=== PATIENT | female | born 1990 ===

== ENCOUNTER 2024-08-02 11:10 | Outpatient (AMB) | payer OTHER, SELFPAY ==
--- NOTE | 2024-08-02 11:21 | MHC.OFFVIS ---
Vital Signs 08/02/24 11:29 Height 5 ft 5 in Weight 98 lb BMI 16.3 BP 111/73 Blood Pressure Location Rt brachial Position Sitting Pulse 72 Intake Visit Reasons: Painful left breast mass,swelling, 12-3 o'clock Intake Note: This patient presents for painful left breast mass, swelling, 12-3 o'clock. Pt c/o; started on oral antibiotics 08/01/2024, reports no redness or hot to the touch sensation, reports pain/swelling, no nipple discharge, reports pressure sensation. 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 She states that she has had this problem for about 4 days. He went to an urgent care center yesterday and was referred to me She denies any obvious palpable mass but feels that her left breast is ?swollen?. She had a similar problem about a year ago and went to [facility]. She says that she was supposed to see an OBGYN at that time for further workup but she says she did not do it She has had no primary care physician either She denies any nipple discharge. She denies any redness of the skin of the breast. [facility] Medical History (Updated 08/02/24 @ 11:50 by Andrew Nguyen MD) Mastodynia of left breast Surgical History No pertinent past surgical history Family History Father No problems noted. Mother No problems noted. Son In good health Sister In good health Review of Systems Const Denies chills and Denies fever(s) Card Denies chest pain, Denies dyspnea and Denies dyspnea on exertion Resp Denies cough, Denies dyspnea and Denies dyspnea on exertion GI Denies hematochezia and Denies change in bowel habits Denies hematuria Musc Denies back pain and Denies limited range of motion Neuro Denies focal weakness and Denies convulsions Psych Denies depression and Denies mood swings Physical Exam Vital Signs: Last Vital Signs Pulse 72 08/02/24 11:29 BP 111/73 08/02/24 11:29 BMI result Body Mass Index 16.3 Const Other: Appears cachectic General: comfortable and no acute distress Orientation/consciousness: patient oriented x3 Neck Neck: Yes no lymphadenopathy Chest Other: Left breast with diffuse tenderness, no obvious mass although exam is difficult at this time, no axillary lymphadenopathy Resp Auscultation: clear to auscultation bilaterally Cardio Rhythm: regular rhythm GI Palpation (GI): Soft to palpation, nontender and no guarding Neuro General: patient oriented x3 Assessment & Plan Assessment & Plan (1) Mastodynia of left breast: Code(s): N64.4 - Mastodynia Category: Medical Plan: She has mastodynia of the left breast. I do not feel any obvious mass. I am going to order for an ultrasound. I told her that NSAIDs including ibuprofen can help with her symptoms at this time. I explained to her that often times, these episodes may last for weeks . I assured her that there is no evidence of any infection. She has no redness of the skin nipple discharge. I also advised her to avoid caffeine products for now I will see her in the office after her ultrasound. Her mother was with her during the visit. I told the mother about my concerns with regards to her cachexia. The mother says that was worried about this as well and they will try to arrange for a primary care visit. Coding Level of Care Code New Pt Level 3 (14405) Diagnoses Mastodynia of left breast N64.4
[2024-08-02 11:29] VITALS: BP 111/73; PULSE 72; BMI 16.3
--- OUTSIDE RECORDS SUMMARY | 2024-08-02 11:55 | XMS_ITS | Data Portability ---
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 Plan of Treatment Reminders Order Date Submit Date Provider Last Modified By Organization Details Last Modified Time Details Appointments None recorded. Lab rapid flu (A+B) 2021 [email or web address] 1 _[facility], [address] [place] [address], [phone], 13:56:55 rapid SARS CoV 2 Ag, QL IA, respiratory specimen 2021 [email or web address] 1 _[facility], [address] [place] [address], [phone], 13:56:55 Referral None recorded. Procedures None recorded. Surgeries None recorded. Imaging None recorded. Medication Orders fluticasone propionate 50 mcg/actuati on nasal spray,suspe nsion 2021 [id number], [address] [place], [address], 13:56:57 ondansetron 4 mg disintegrat ing tablet 2021 [id number], [address] [place], [address], 13:56:57 Patient TargetsNo targets recorded. Patient Instructions Encounter Date Encounter Id Patient Instructions Last Modified By Organization Details Last Modified Time 06/04/2022 [id number] influenza (flu): care instructions [email or web address] Not available 06/04/2022 13:56:55 advised pt to repeat rapid covid test in 48 hours [email or web address] Not available 06/04/2022 13:58:48 Reason for Referral None Reported. Results Created Date Observation Date Name Description Value Unit Range Abnormal Flag Note LastModifiedBy Organization Detail LastModifiedTime 06/04/20 22 06/04/2022 rapid SARS CoV 2 Ag, QL IA, respi rator y speci men Unknown Analyte Normal =Negat emma Not Available [address] [place] [address], [phone], 06/04/2022 13:00:41 06/04/20 22 06/04/2022 rapid SARS CoV 2 Ag, QL IA, respi rator y speci men Unknown Analyte negati ve Not Available [address] [place] [address], [phone], 06/04/2022 13:00:41 06/04/20 22 06/04/2022 rapid flu (A+B) Unknown Analyte Normal = Negati ve Not Available [address] [place] [address], [phone], 06/04/2022 13:00:36 06/04/20 22 06/04/2022 rapid flu (A+B) Unknown Analyte negati ve Not Available [address] [place] [address], [phone], 06/04/2022 13:00:36 06/04/20 22 06/04/2022 rapid flu (A+B) Unknown Analyte Normal = Negati ve Not Available [address] [place] [address], [phone], 06/04/2022 13:00:36 06/04/20 22 06/04/2022 rapid flu (A+B) Unknown Analyte negati ve Not Available [address] [place] [address], [place], [phone], 06/04/2022 13:00:36 Result Notes None recorded. Problems No Known Problems Medical Equipment None Reported. Allergies No known drug allergies Medications Name Sig Start Date Stop Date Status Note LastModified by Organization Details LastModified Time ondansetron 4 mg disintegrati ng tablet Place 1 tablet every 6-8 hours by translingua l route as needed. 2021 active Not Available Not Available Not Avai lable fluticasone propionate 50 mcg/actuatio n nasal spray,suspen yadira [place] 1 spray twice a day by intranasal route as directed. 2021 active Not Available Not Available Not Avai lable Vitals Date Recorded Body height Body mass index (BMI) Body weight Oxygen saturation Oxygen saturation in Arterial blood by Pulse oximetry Heart rate Respiratory rate Body temperature Systolic blood pressure Diastolic blood pressure Provider Name and Address Organization Details Last Updated DateTime 2 165.1 cm 17 kg/m2 69591.4 2 g 100 % 100 % 103 /min 18 /min 98.3 [degF] 96 mm[Hg] 64 mm[Hg] Sonia Gant PA - [facility] 13:12:51 Social History Question Answer Notes LastModified by Organizat ion Details LastModified Time Tobacco Smoking Status Never Smoker Sonia lopez PA - [facility] 06/04/2022 13:00:27 What Is Your Level Of Alcohol Consumption? None Information not available 06/04/2022 Have You Had Direct Contact, Or Contact During Intimacy, With Monkeypox Rash, Scabs, Or Body Fluids From A Person With Monkeypox? No Information not available 06/04/2022 Do You Use Any Illicit Or Recreational Drugs? No Information not available 06/04/2022 Have You Recently Traveled Abroad? No Information not available 06/04/2022 Do You Or Have You Ever Used Any Other Forms Of Tobacco Or Nicotine? No Information not available 06/04/2022 Sex: Unknown Functional Status None recorded. Mental Status None recorded. Family History Relationship Description Onset Age of this Age Resolved Age Notes LastModified by Organization Details LastModified Time Father No current problems or disability Not available 06/04 13:00:18 Mother No current problems or disability Not available 06/04 13:00:18 Medical History No medical history recorded. Gynecological HistoryNo gynecological history recorded. Obstetrics History GPAL:G 0 P 0 0 0 0 Past Encounters Encounter ID Performer Location Encounter Start Date Encounter Closed Date Diagnosis/Indication Diagnosis SNOMED-CT Code Diagnosis ICD10 Code Diagnosis Note [id number] [address] [place] [address] 01/27/2021 08:43:33 01/27/2021 11:24:39 [id number] [address] [facility] [address] [place] [address] 07/17/2019 11:50:48 07/17/2019 16:23:33 [id number] [address] [address] 06/02/2019 12:30:49 06/02/2019 13:06:07 [id number] [address] [address] [place] [address] 02/07/2018 17:11:51 02/07/2018 17:32:36 [id number] [address] [address] 06/03/2021 16:51:42 06/03/2021 19:05:28 [id number] [facility] [address] [place] [address] 07/02/2019 18:23:54 07/02/2019 18:47:13 [id number] GAEL GARG MD [address] [address] 06/04/2022 11:11:57 06/04/2022 14:01:39 Fever 354496398 R50.9 Influenza [id number] J11.1 Drink plenty of fluids Try small amounts of clear liquids frequently . Water, pradeep peace,clear chicken broth, or sport drinks. If vomiting occurs, wait 30-60 minutes before trying clear liquids again. Once you are able to tolerate clear liquids without vomiting for at least 6-12 hours without vomiting, you may begin to eat small amounts of food, starting with a BRAT diet. The BRAT diet consists of foods such as bananas, rice, applesauce , toast, crackers, and other foods rich in carbohydra [place] and low on fats and spices, which tend to irritate the stomach. If the BRAT diet is tolerated for 12-24 hours, you can slowly add other foods to your diet. If vomiting occurs, you should go back to clear liquids only and work your way back to a normal diet as outlined above. If you are unable to tolerate clear liquids for4 consecutiv e hours, you should seek treatment immediatel y or go to the Emergency Department . If your symptoms are getting worse, or if you develop new symptoms that concern you, you should call 911 or go to the Emergency Department . If your symptoms worsen or persist you should be re-evaluat ed. [facility] or see your primary care physician if your symptoms fail to improve in 3-5 days. You should follow up sooner if your symptoms worsen significan tly or if you develop new symptoms that concern you. Health Concerns Section Related Observation LastModified by Organization Detai ls LastModified Time None Recorded Concern Status LastModified by Organization Details LastModified Time None Recorded Advance Directives Directive None Recorded Payers Encounter Date Sequence Insurance Name Policy Number Policy Bazan Covered Member ID Bazan Member ID Guarantor Name 07/02/2019 1 [facility] [id number] Lexi Elizabeth [id number] Lexi Elizabeth 07/02/2019 2 [place] [facility] Lexi Elizabeth [id number] Lexi Elizabeth 07/17/2019 1 [facility] [id number] Lexi Elizabeth [id number] Lexi Elizabeth 07/17/2019 2 [place] [facility] Lexi Elizabeth [id number] Lexi Elizabeth 01/27/2021 1 [facility] [id number] Leix Elizabeth [id number] Lexi Elizabeth 01/27/2021 2 [place] [facility] Lexi Elizabeth [id number] Lexi Elizabeth 06/03/2021 1 [facility] [id number] Lexi Elizabeth [id number] Lexi Elizabeth 06/03/2021 2 [place] [facility] Lexi Elizabeth [id number] Lexi Elizabeth 06/04/2022 1 [facility] (MEDICAID HMO) Lexi Elizabeth [id number] Lexi Elizabeth Notes Date Note Type Note Provider Name and Address Organization Details Recorded Time 06/04/2022 text/html FeverReported bypatient.source of patient informationpatient Severity:101 degrees F Duration:constant Context:Possible Exposure to Covid-19; 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 Also with N/V - vomiting has subsided but still nauseated. Able to paulino water. GAEL GARG MD [address] [facility] [place], [address], [place] - [facility] 06/04/2022 13:58:52 OBGyn Episode No OBEpisode recorded.
--- OUTSIDE RECORDS SUMMARY | 2024-08-02 11:55 | XMS_ITS | Encounter Summary ---
Author Organization [facility] Address [address] [place] [address] Phone Care Team Providers Care Crystal Evaluator Name Role Phone Unavailable Primary Care Provider Unavailabl e Encounter Details Date Type Department Care Team (Late st Contact Info) Description 01/28/2017 Conversion Encounter [facility] - [address] [address] Social History Tobacco Use Types Packs/Day Years Used Date Smoking Tobacco: Never Assessed Comments Unknown Sex and Gender Information Value Date Recorded Sex Assigned at Not on file Legal Sex Female 4:44 PM EDT Gender Identity Not on file Sexual Orientation Not on file documented as of this encounter Plan of Treatment Not on file documented as of this encounter Visit Diagnoses Not on filedocumented in this encounter
--- OUTSIDE RECORDS SUMMARY | 2024-08-02 11:55 | XMS_ITS | Clinical Summary ---
Author Organization [facility] Address [address] [place] [address] Phone Care Team Providers Care Spikemaking Supervisor Name Role Phone Unavailable Primary Care Provider Unavailabl e Immunizations Immunization Administration Dates Next Due DTP 10/20/1994, 1,05/10/1990,03/08,01/03/1990 HPV, Quadrivalent 01/02/2008,09/13/2007 Hep B, ped/adol 11/06/2003,07/06/2003,07/05/2002 Hib (PRP-T) 02/09/1991,11/11/1990,05/10/1990 MMR 10/20/1994,02/09/1991 Meningococcal Conj (Menactra) MCV4P 09/13/2007 OPV 10/20/1994, 1,03/08/1990,01/03 Td (adult) (MBL), 2 Lf tetan us toxoid, PF, adsorbed 07/05/2002 Tdap 07/12/2007 Varicella 09/13/2007,08/08/2003 Family History Relation Name Status Comments Father Alive Father: Alive a nd well Mother Alive Mother: Alive a nd well Other No family histo ry of Sudden /CA under age 55, No family history of Obesity, No family history of Deafness, No family history of Elevated cholesterol, No family history of Seizure disorder, No family history of Autism, No family history of Diabetes mellitus, Family history of Asthma, No family history of ADD/ADHD, No family history of Developmental dislocation of hip, No family history of Migraines, No family history of Strabismus/amblyopia Sister Alive Sister: Asthma Social History Tobacco Use Types Packs/Day Years Used Date Smoking Tobacco: Never Assessed Comments Unknown Sex and Gender Information Value Date Recorded Sex Assigned at Not on file Legal Sex Female 4:44 PM EDT Gender Identity Not on file Sexual Orientation Not on file Plan of Treatment Health Maintenance Due Date Last Done Comments HPV Vaccines (3 - 3-dose series) 03/26/2008 01/02/2008, 09/13/2007 DTaP,Tdap,and Td Vaccines (7 - Td or Tdap) 07/12/2017 07/12/2007, 07/05/2002, 10/20/1994, Additional history exists Influenza Vaccines (#1) 2024 COVID-19 Vaccine ( season) 2024 HIB Vaccines Completed 02/09/1991, 10/14, 05/10/1990 IPV Vaccines Completed 10/20/1994, 08/1990, 03/08/1990, Additional history exists MMR Vaccines Completed 10/20/1994, 02/09/1991 Hepatitis B Vaccines Completed 11/06/2003, 07/06/2003, 07/05/2002 Meningococcal Vaccine Completed 09/13/2007 Varicella Vaccines Completed 09/13/2007, 08/08/2003 Hepatitis A Vaccines Aged Out No long er eligible based on patient's age to complete this topic Men B Vaccine Aged Out No longer elig ible based on patient's age to complete this topic Pneumococcal Vaccine Aged Out No long er eligible based on patient's age to complete this topic
--- OUTSIDE RECORDS SUMMARY | 2024-08-02 11:55 | XMS_ITS | Clinical Summary ---
Author Organization [facility] Address [address] [place] [address] Care Team Providers Care Icu Manager Name Role Phone Unavailable Primary Care Provider Unavailabl e Social History Tobacco Use Types Packs/Day Years Used Date Smoking Tobacco: Former Cigarettes Smokeless Tobacco: Never Alcohol Use Standard Drinks/Week Comments No 0 (1 standard drink = 0.6 oz pur e alcohol) Comments Unknown Sex and Gender Information Value Date Recorded Sex Assigned at Not on file Legal Sex Female 12:58 AM EST Gender Identity Not on file Sexual Orientation Not on file Obstetrics History Plan of Treatment Health Maintenance Due Date Last Done Comments Hepatitis B Vaccines (1 of 3 - 19+ 3-dose series) 2008 Cervical Cancer Screening: P ap Smear 09/03/2020 09/03/2017 Depression Screening 07/13/2023 HIV Screening 07/13/2023 Hepatitis C Screening 07/13/2023 Social Influencers of Health Screening 07/13/2023 COVID-19 Vaccine ( - 2023-2 5 season) 2024 Influenza Vaccine (#1) 2024 DTaP,Tdap,and Td Vaccines (2 - Td or Tdap) 01/08/2028 01/07/2018 HIB Vaccines Aged Out No longer eligi ble based on patient's age to complete this topic HPV Vaccines Aged Out No longer eligi ble based on patient's age to complete this topic Hepatitis A Vaccines Aged Out No long er eligible based on patient's age to complete this topic IPV Vaccines Aged Out No longer eligi ble based on patient's age to complete this topic MMR Vaccines Aged Out No longer eligi ble based on patient's age to complete this topic Meningococcal ACWY Vaccine Aged Out N o longer eligible based on patient's age to complete this topic Meningococcal B Vacine Aged Out No lo nger eligible based on patient's age to complete this topic Pneumococcal Vaccine: Pediat rics (0 to 5 Years) and At-Risk Patients (6 to 64 Years) Aged Out No longer eligi ble based on patient's age to complete this topic RSV Immunization Patients Un kwadwo 20 months Aged Out No longer eligible b ased on patient's age to complete this topic Varicella Vaccines Aged Out No longer eligible based on patient's age to complete this topic Procedures Procedure Name Priority Date/Time Associated Diagnosis Comments PAP SMEAR Routine 09/03/2017 from Last 3 Months or Most Recently Relevant to Health Maintenance Results * Pap smear (09/03/2017) 09/03/2017 Narrative HISTORICAL TESTING LAB RESULTING AGENCY - 09/07/2017 4:14 PM EDT [id number] THINPREP PAP, IMAGED: NEGATIVE FOR SQUAMOUS INTRAEPITHELIAL LESION AND MALIGNANCY ??. CLUE CELLS ARE PRESENT. MER KASPER(ASCP) (CASE ELECTRONICALLY SIGNED 09 07 2017) ADEQUACY: SATISFACTORY. ENDOCERVICAL/TRANSFORMATION ZONE COMPONENT PRESENT. SOURCE: THINPREP PAP HPV IF ASCUS, CERVICAL, IMAGED: CLINICAL INFORMATION: HPV IF DIAGNOSIS OF ASCUS. , PAP HX NEG, Z12.4 Geovanna Cadet CN LAB CYTOLOGY ORDERA BLES Final Result HISTORICAL TESTING LAB RESULTING AGENCY from Last 3 Months or Most Recently Relevant to Health Maintenance
== END 2024-08-02 11:56 | disposition home or self-care (01) ==
PROVIDERS: PCP Hospitalist; Visit Provider Surgery
DX: N64.4 Mastodynia (principal)
CPT/HCPCS: 99203

== ENCOUNTER → 2024-08-02 11:10 | Outpatient (BNVA) | payer OTHER, SELFPAY | PROVIDERS: PCP Hospitalist; Visit Provider Surgery | DX: N64.4 Mastodynia (principal) | CPT/HCPCS: 99202 ==